=== PATIENT | female | born 1965 | race Caucasian/White ===

== ENCOUNTER 2017-02-11 21:19 | Observation (INO) ==
[2017-02-11] MEDS ORDERED: *HR* Metoprolol 5 MG/5 ML VIAL IVP ONE (22:52)
--- NOTE | 2017-02-11 22:55 | Emergency Department Note ---
Disposition Clinical Impression: Hypertensive urgency, Accelerated hypertension Disposition: Admitted As Inpatient Condition: Good Time of Disposition: 00:18 General Adult HPI - General Chief complaint: ED General Medical Stated complaint: High BP Time Seen by Provider: 02/11/17 22:26 Source: patient Mode of arrival: ambulatory Limitations: no limitations Nursing Notes Reviewed: Yes Vital Signs Reviewed: Yes - History of Present Illness HPI Narrative: 51-year-old female history of hypertension and pack per day smoker presents with elevated blood pressure. She continues to complain of blurry vision, chest discomfort and headache. She was recently evaluated for similar symptoms and diagnosed with hypertensive urgency on February [address] of the head showing small lacunar infarcts. Patient refused to be admitted for further workup as she had some social issues. She has been taken hydrochlorothiazide 10 mg at noon everyday sense. She presents with elevated blood pressure 167/111. Denies any chest pain at this time. Reports blurry vision but no visual changes. She continues to make good urine output. She attempted to establish primary care at the residency [facility] and has a scheduled appointment March 03. However due to the persistent symptoms she was recommended to come for further evaluation. On physical exam she denies any chest pain and neurologic exam is normal without any focal neural deficits. Will check for an organ damage and determine disposition. Pain Scale: 0 - Related Data Previous Rx's Medication Instructions Recorded hydroCHLOROthiazide 25 mg PO DAILY #30 tablet 02/06/17 [Hydrochlorothiazide] Allergies Allergy/AdvReac Type Severity Reaction Status Date / Time No Known Allergies Allergy Verified 02/06/17 20:00 All systems ED: reviewed and negative except as stated. Review of Systems: As Per HPI Constitutional: Denies: fever, chills Eyes: Reports: other (Blurry vision). Denies: vision change Cardiovascular: Denies: chest pain, palpitations, dyspnea on exertion Respiratory: Denies: cough, dyspnea Gastrointestinal: Denies: abdominal pain, nausea, vomiting, diarrhea Genitourinary: Denies: urgency, dysuria, hematuria Musculoskeletal: Denies: back pain, neck pain Integumentary: Denies: rash, abrasion Neurological: Reports: headache. Denies: weakness, numbness, abnormal gait, vertigo Psychiatric: Denies: anxiety, depression Past Medical History - Past Medical History Attestation: Yes The following information was validated with the patient. 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 - Social History Smoking Status: Current every day smoker Smokeless Tobacco Status: No Alcohol use: Reports: rarely Drug use: Reports: none Physical Exam - General Limitations: no limitations General appearance: alert, in no apparent distress - Head Head exam: atraumatic, normocephalic, normal inspection - Eye Eye exam: Present: normal appearance, PERRL, EOMI - Expanded Eye Exam Cornea: bilateral: Normal Inspection Anterior chamber: bilateral: normal inspection Posterior chamber: bilateral: normal inspection - ENT ENT exam: normal exam, normal oropharynx, mucous membranes moist - Neck Neck exam: Present: normal inspection, full ROM, trachea midline. Absent: tenderness - Chest Chest inspection: Present: normal inspection, symmetric chest wall rise. Absent : tenderness - Respiratory Respiratory exam: Present: normal lung sounds bilaterally. Absent: respiratory distress, wheezes - Cardiovascular Cardiovascular exam: Present: regular rate, normal rhythm, normal heart sounds - Abdominal Exam Abdominal exam: Present: soft, Non-Tender, normal bowel sounds. Absent: tenderness, distention, guarding, rebound, rigidity - Extremities Exam Extremities exam: Present: normal inspection, full ROM, normal capillary refill. Absent: tenderness, pedal edema, calf tenderness - Back Exam Back exam: Present: normal inspection, full ROM. Absent: tenderness - Neurological Exam Neurological exam: Present: alert, oriented X3, CN II-XII intact, normal gait - Expanded Neurological Exam Patient oriented to: Present: person, place, time Speech: Present: fluid speech Cranial nerves: EOM function (II, III, IV, ): Normal, facial sensation (V): Normal, facial palsy (VII): Normal, gag reflex (IX): Normal, spinal accessory function (XI): Normal, tongue deviation (XII): Normal Cerebellar function: finger to nose: Normal, heel to conway: Normal Cerebellar function: normal gait Motor strength - LUE: 5/5 Motor strength - RUE: 5/5 Motor strength - LLE: 5/5 Motor strength - RLE: 5/5 Upper motor neuron exam: fred neglect: Absent bilaterally, pronator drift: Absent bilaterally Sensory exam upper extremity: light touch: Normal Sensory exam lower extremity: light touch: Normal - Psychiatric Psychiatric exam: Present: normal affect, normal mood - Skin Skin exam: Present: warm, dry, intact, normal color Course - Reevaluation(s) Reevaluation #1: She continues to deny any chest pain but continues to complain of blurry vision. Fundoscopic exam did not show any exudates or papilledema. Labs did not show any signs of an organ damage. Neurologic exam remains normal without any focal neural deficits. After 5 mg Lopressor patient's blood pressure initially came down 144/96 and 160/110 but upon recheck has come back up persistently diastolic above 110s. Will give her dose of 20 mg labetalol and given her history of lacunar stroke will admit for hypertensive urgency and accelerated hypertension. She does report a history of hypertension several years ago at that time taken lisinopril but she had stopped. Due to the persistent symptoms of headache, blurry vision and mild chest discomfort she is appropriate for admission to medicine for further workup.Patient is in agreement with this plan. Time: 00:01 Reevaluation #2: BP came down 160/99 after Labetalol. Time: 01:16 - Consultations Consultation #1: Spoke with on-call hospitalist bismark Thrasher to admit for hypertensive urgency. No further orders at this time Time: 01:16 Vital Signs Temperature 98.1 F 02/11/17 21:51 Pulse Rate 90 02/11/17 21:51 Respiratory Rate 16 02/11/17 21:51 Blood Pressure 167/111 02/11/17 21:51 O2 Sat by Pulse Oximetry 95 02/11/17 21:51 Temperature 98.1 F 02/11/17 21:51 Pulse Rate 75 02/12/17 00:51 Respiratory Rate 18 02/12/17 00:51 Blood Pressure 160/99 02/12/17 00:51 O2 Sat by Pulse Oximetry 94 02/12/17 00:51 Oxygen Delivery Oxygen Delivery Room Air Medical Decision Making - Medical Records Medical records reviewed: Yes I reviewed the patient's medical records. - Lab Data Lab results reviewed: Yes I reviewed the patient's lab results. Result diagrams: 02/11/17 23:04 02/11/17 23:04 Lab Results 02/11/17 02/11/17 02/11/17 Range/Units 22:30 22:30 23:04 WBC 10.9 (4.3-11.1) K/mcL RBC 4.93 (3.82-4.97) M/mcL Hgb 15.2 (11.5-15.4) g/dL Hct 46.8 H (35.3-44.9) % MCV 94.9 (83.0-100.0) fL MCH 30.8 (28.0-33.3) pg MCHC 32.5 (31.6-35.5) g/dL RDW 13.2 (11.5-14.5) % Plt Count 255 (140-400) K/mcL MPV 10.2 (9.4-12.4) fL Immature Gran % 0.8 (0-4) % Seg Neutrophils % 65.7 % Lymphocytes % 25.2 % Monocytes % 6.1 % Eosinophils % 1.6 % Basophils % 0.6 % Neutrophils # 7.2 (1.6-8.9) K/mcL Lymphocytes # 2.8 (0.6-4.6) K/mcL Monocytes # 0.7 (0.0-1.3) K/mcL Eosinophils # 0.2 (0.0-0.6) K/mcL Basophils # 0.1 (0.0-0.2) K/mcL Sodium (136-145) mEq/L Potassium (3.5-4.5) mEq/L Chloride (98-109) mEq/L Carbon Dioxide (19-29) mEq/L BUN (7-20) mg/dL Creatinine (0.57-1.11) mg/dL Est GFR ( Amer) (> 60) Est GFR (Non-Af Amer) (> 60) BUN/Creatinine Ratio (6-26) Glucose (70-99) mg/dL Calculated Osmolality (280-300) Calcium (8.6-10.8) mg/dL Troponin I (0-0.03) ng/mL Urine Color Yellow (Yellow) Urine Clarity Clear (Clear) Urine pH 6.0 (5.0-8.0) pH Units Ur Specific [place] 1.011 (1.010-1.025) Urine Protein Negative (Neg-Trace) mg/dL Urine Glucose (UA) Normal (Normal) mg/dL Urine Ketones Negative (Negative) mg/dL Urine Blood Trace H (Negative) Urine Nitrite Negative (Negative) Urine Bilirubin Negative (Negative) Urine Urobilinogen Normal (Normal) mg/dL Ur Leukocyte Esterase Negative (Negative) Urine Microscopic RBC 3-5 H (0-3) per hpf Urine Microscopic WBC 0-3 (0-3) per hpf Ur Squamous Epith Cells Many H (None-Few) per lpf Urine Bacteria Few (None-Few) per hpf Hyaline Casts None Seen (None-Few) per lpf Ur Culture Indicated? NO (NO) Urine Test Negative (Negative) 02/11/17 02/11/17 Range/Units 23:04 23:04 WBC (4.3-11.1) K/mcL RBC (3.82-4.97) M/mcL Hgb (11.5-15.4) g/dL Hct (35.3-44.9) % MCV (83.0-100.0) fL MCH (28.0-33.3) pg MCHC (31.6-35.5) g/dL RDW (11.5-14.5) % Plt Count (140-400) K/mcL MPV (9.4-12.4) fL Immature Gran % (0-4) % Seg Neutrophils % % Lymphocytes % % Monocytes % % Eosinophils % % Basophils % % Neutrophils # (1.6-8.9) K/mcL Lymphocytes # (0.6-4.6) K/mcL Monocytes # (0.0-1.3) K/mcL Eosinophils # (0.0-0.6) K/mcL Basophils # (0.0-0.2) K/mcL Sodium 141 (136-145) mEq/L Potassium 3.8 (3.5-4.5) mEq/L Chloride 101 (98-109) mEq/L Carbon Dioxide 31 H (19-29) mEq/L BUN 10 (7-20) mg/dL Creatinine 0.89 (0.57-1.11) mg/dL Est GFR ( Amer) > 60 (> 60) Est GFR (Non-Af Amer) > 60 (> 60) BUN/Creatinine Ratio 11 (6-26) Glucose 92 (70-99) mg/dL Calculated Osmolality 291 (280-300) Calcium 10.3 (8.6-10.8) mg/dL Troponin I 0.00 (0-0.03) ng/mL Urine Color (Yellow) Urine Clarity (Clear) Urine pH (5.0-8.0) pH Units Ur Specific [place] (1.010-1.025) Urine Protein (Neg-Trace) mg/dL Urine Glucose (UA) (Normal) mg/dL Urine Ketones (Negative) mg/dL Urine Blood (Negative) Urine Nitrite (Negative) Urine Bilirubin (Negative) Urine Urobilinogen (Normal) mg/dL Ur Leukocyte Esterase (Negative) Urine Microscopic RBC (0-3) per hpf Urine Microscopic WBC (0-3) per hpf Ur Squamous Epith Cells (None-Few) per lpf Urine Bacteria (None-Few) per hpf Hyaline Casts (None-Few) per lpf Ur Culture Indicated? (NO) Urine Test (Negative) - Radiology Data Radiology results reviewed: Yes I reviewed the patient's radiology results. Chest X-Ray 02/11/17 22:52 IMPRESSION: Negative portable chest. D/ / Hayes Ovalles MD / Hayes Ovalles MD Interpreting Provider: Hayes Ovalles MD - EKG Data EKG #1 EKG attestation: Yes I reviewed and interpreted this EKG. EKG results narrative: EKG performed 2320 normal sinus rhythm 75 bpm normal axis no ST elevation or depression, intervals are within normal limits. Compared to old EKG performed 02/06/2017 shows consistent findings. No acute ischemic changes. Attestation Statement - Attestation Attestation: I, Jani High MD, personally evaluated this patient and discussed their management with the resident physician. I reviewed the resident's note and agree with the documented findings, medical decision making, and plan of care. 51-year-old female presents to the emergency department with a complaint of elevated blood pressure. She complains of having headache and blurred vision. Some intermittent chest discomfort with nausea but no vomiting. Some intermittent numbness and tingling in the extremities. Symptoms started a little over a week ago. She was seen here about 5 days ago and had a CT of the brain which showed some lacunar infarcts. She states they wanted to admit her at that time but she refused. She has a history of hypertension in the past but stopped taking her medication a long time ago. She returns tonight with continued symptoms. On examination the patient is a well-developed well-nourished well-appearing female in no acute distress. She is alert and oriented 3. There is no cyanosis or diaphoresis. No carotid bruits. No gross focal neurological deficits. Breath sounds are clear and equal bilaterally. Heart regular rate and rhythm. Abdomen is soft and nontender with normal bowel sounds. EKG normal. Chest x-ray negative. Labs reviewed. Patient received IV Lopressor with no change in blood pressure. She did receive labetalol 20 mg IV with some improvement. Hospitalist, Dr. Valdes, was consulted and accepted admission of the patient.
[2017-02-11 23:07] LABS: Bilirubin,Urine Negative (Negative); Blood,Urine Trace (Negative); Clarity,Urine Clear (Clear); Color,Urine Yellow (Yellow); Glucose,Urine (UA) Normal (Normal); Ketones,Urine Negative (Negative); Leukocyte Esterase,Urine Negative (Negative); Nitrite,Urine Negative (Negative); Protein,Urine Negative (Neg-Trace); Specific Gravity,Urine 1.011 (1.010-1.025); Urobilinogen,Urine Normal (Normal)
[2017-02-11 23:10] LABS: Bacteria,Urine Few per hpf (None-Few); Hyaline Casts,Urine None Seen per lpf (None-Few); Squamous Epithelial Cell,Urine Many per lpf (None-Few); WBC,Urine 0-3 per hpf (0-3)
[2017-02-11 23:14] LABS: Basophils # 0.1 K/mcL (0.0-0.2); Basophils % 0.6 %; Eosinophils # 0.2 K/mcL (0.0-0.6); Eosinophils % 1.6 %; Hematocrit 46.8 % (35.3-44.9); Hemoglobin 15.2 g/dL (11.5-15.4); Immature Granulocytes % 0.8 % (0-4); Lymphocytes # 2.8 K/mcL (0.6-4.6); Lymphocytes % 25.2 %; Mean Corpuscular HGB Conc 32.5 g/dL (31.6-35.5); Mean Corpuscular Hemoglobin 30.8 pg (28.0-33.3); Mean Corpuscular Volume 94.9 fL (83.0-100.0); Mean Platelet Volume 10.2 fL (9.4-12.4); Monocytes # 0.7 K/mcL (0.0-1.3); Monocytes % 6.1 %; Neutrophils # 7.2 K/mcL (1.6-8.9); Platelet Count 255 K/mcL (140-400); Red Blood Count 4.93 M/mcL (3.82-4.97); Red Cell Distribution Width 13.2 % (11.5-14.5); Segmented Neutrophils % 65.7 %
[2017-02-11 23:26] LABS: BUN/Creatinine Ratio 11 (6-26); Blood Urea Nitrogen 10 mg/dL (7-20); Calcium 10.3 mg/dL (8.6-10.8); Carbon Dioxide 31 mEq/L (19-29); Chloride 101 mEq/L (98-109); Glucose 92 mg/dL (70-99); Osmolality,Calculated 291 (280-300); Potassium 3.8 mEq/L (3.5-4.5); Sodium 141 mEq/L (136-145); eGFR For African Americans > 60 (> 60); eGFR For Non-African Americans > 60 (> 60)
[2017-02-12] MEDS ORDERED: *HR* Labetalol 20 MG/4 ML SYRINGE IVP ONE (00:15)
[2017-02-12] MEDS ORDERED: *HR* Morphine 2 MG/ML SYRINGE IVP PRN (01:36)
[2017-02-12] MEDS ORDERED: Ondansetron 4 MG/2 ML VIAL IVP PRN (01:36)
[2017-02-12] MEDS ORDERED: Naloxone 0.4 MG/ML INJ IVP PRN (01:36)
[2017-02-12] MEDS ORDERED: Acetaminophen 325 MG TABLET PO PRN (01:36)
--- NOTE | 2017-02-12 01:42 | Internal Med History&Physical ---
Date of Encounter: 02/12/17 Time of Encounter: 02:00 Assessment and Plan (1) Accelerated hypertension Current visit: Yes Status: Acute Accelerated hypertension - secondary to medication noncompliance - no evidence of end organ damage h/o Essential HTN - not well controlled IV Labetalol and IV Metoprolol given in the ED Continue Lisinopril/HCTZ, PO Metoprolol, IV Hydralazine when necessary Continue Aspirin, Statin Troponin - 0.00, will trend EKG - sinus rhythm with no acute ST-T changes Chest x-ray - no acute process CT brain () - probable prior lacunar infarct in the right anterior limb of internal capsule Echocardiogram - pending Cardiac telemetry, labs in a.m. (2) Depression Current visit: Yes Status: Chronic Chronic major depression - stable, continue Effexor History of opioid dependence - now on Suboxone Patient admits to remote history of cocaine use Qualifiers: Depression Type: major depressive disorder Major depression recurrence: recurrent Active/Remission status: currently active Major depression episode severity: mild Qualified Code(s): F33.0 - Major depressive disorder, recurrent, mild (3) Tobacco abuse Current visit: Yes Status: Acute Patient smokes about three fourths of a pack of cigarettes daily - smoked for almost 30 years Counseled about cessation, nicotine patch (4) DVT prophylaxis Current visit: Yes Status: Acute Continue heparin subcutaneous Internal Medicine - H&P: HPI Chief complaint: Headache, blurred vision Admitted From: Emergency Dept Plans for Post Hospital Care: Home History of present illness: Ms. Kline is a 51 year old female with past medical history of hypertension and depression. She presents to the ED with complaints of headaches and blurred vision. On examination patient is awake and alert. Not in any distress. Able to provide all history. No family members at bedside. Patient states she has had headaches and blurred vision for the past few weeks. Symptoms have gradually worsened over the past week. She initially came in to the ED about 5 days ago for similar complaints. She was found to have accelerated hypertension. She had a CT scan of her brain done which showed an old lacunar infarct. She was advised admission to the hospital at the time, but she left AGAINST MEDICAL ADVICE. Patient returns today with the same complaints of headache and blurred vision, and she says symptoms seem to be slightly worse earlier today. Patient states her headache is almost generalized and is throbbing at times. She states headache has improved after IV antihypertensive medication given in the ED. No aggravating factors. Patient denies chest pain denies shortness of breath at present. Denies dizziness or vomiting or abdominal pain or fever or diarrhea. No other associated symptoms. Patient states that she has not been taking her medication for several months and does not follow up with a primary care physician. Patient does smoke about three fourths of a pack of cigarettes daily and has smoked for almost 30 years. Patient states she has a history of opioid abuse in the past and is now on Suboxone. She also admits to remote history of cocaine use. Initial evaluation in the ED today is negative except for elevated blood pressure. Patient is being admitted for accelerated hypertension. She will be restarted on by mouth medication will be on IV hydralazine when necessary. Patient has been explained about her condition and plan of care. She understood and agreed. No unanswered questions. CODE STATUS full code. Past Med Surg Social Fam HX - Past Medical History Medical history: hypertension, other (History of opioid dependence now on Suboxone) Psychiatric history: depression - Past Surgical History Surgical History: orthopedic, other (Left shoulder surgery and right ankle fracture repair), other (Tubal ligation) - Social History Smoking Status: Current every day smoker Smokeless Tobacco Status: No Alcohol use: rarely Drug use: none - Family History Father Hx Family Cancer: Yes Mother Hx Family Medical Disorders: Yes (Hypertension) Internal Medicine - H&P: Meds hydroCHLOROthiazide [Hydrochlorothiazide] 25 mg PO DAILY #30 tablet 02/06/17 [Rx ] Allergies No Known Allergies Allergy (Verified 02/06/17 20:00) All Systems PM: A 10-system review of systems was performed and is negative for pertinent findings except as documented above in the HPI. - Constitutional Constitutional: no fatigue, no fever(s), no weakness - EENT Eyes: blurry vision, no diplopia, no loss of vision, no photophobia Ears: no ear pain - Cardiovascular Cardiovascular ROS IM: no chest pain, no dyspnea, no dyspnea on exertion, no edema, no lightheadedness, no orthopnea, no syncope - Respiratory Respiratory: no cough, no dyspnea, no dyspnea on exertion, no wheezing, no chest congestion - Gastrointestinal Gastrointestinal: no abdominal pain, no bloating, no cramping, no diarrhea, no hematochezia, no nausea, no vomiting - Genitourinary Genitourinary: no dysuria - Musculoskeletal Musculoskeletal ROS IM: arthralgias - Neurological Neurological ROS: headache(s), no abnormal gait, no abnormal speech, no confusion, no dizziness, no focal weakness, no numbness, no tingling - Psychiatric Psychiatric: depression - Constitutional Vitals: Temp Pulse Resp BP Pulse Ox 98.1 F 75 18 160/99 94 02/11/17 21:51 02/12/17 00:51 02/12/17 00:51 02/12/17 00:51 02/12/17 00:51 General appearance: Present: A&O X 3, pleasant, no acute distress, answers questions appropriately - Head Head exam: Present: atraumatic - Eye Eye exam: Present: EOMI. Absent: conjunctival injection, scleral icterus - ENT ENT exam: Present: mucous membranes moist - Neck Neck exam general surgery: Present: supple - Respiratory Respiratory exam: Present: CTAB. Absent: rales, rhonchi, wheezes, tachypnea - Cardiovascular Cardiovascular exam: Present: RRR, +S1, +S2 - GI/Abdominal GI/Abdominal exam: Present: soft, no peritoneal signs. Absent: distended, firm , guarding, rigid, tenderness - Extremities Exam Extremities exam: Present: radial pulses palpable and symetrical. Absent: cyanotic, pedal edema, tenderness - Neurological Exam Neurological exam: Present: alert, CN II-XII intact, oriented X3, no focal deficits. Absent: facial droop, speech deficit Internal Med - H&P Results - Labs CBC & Chem 7: 02/11/17 23:04 02/11/17 23:04
[2017-02-12] MEDS ORDERED: Lisinopril-HCTZ 20-12.5mg TABLET PO ONE (03:34)
[2017-02-12 05:11] LABS: Basophils # 0.1 K/mcL (0.0-0.2); Basophils % 0.8 %; Eosinophils # 0.2 K/mcL (0.0-0.6); Eosinophils % 1.7 %; Hematocrit 45.6 % (35.3-44.9); Hemoglobin 14.8 g/dL (11.5-15.4); Immature Granulocytes % 0.8 % (0-4); Lymphocytes # 3.4 K/mcL (0.6-4.6); Lymphocytes % 30.8 %; Mean Corpuscular HGB Conc 32.5 g/dL (31.6-35.5); Mean Corpuscular Hemoglobin 30.8 pg (28.0-33.3); Mean Corpuscular Volume 94.8 fL (83.0-100.0); Mean Platelet Volume 10.4 fL (9.4-12.4); Monocytes # 0.8 K/mcL (0.0-1.3); Monocytes % 7.3 %; Neutrophils # 6.5 K/mcL (1.6-8.9); Platelet Count 261 K/mcL (140-400); Red Blood Count 4.81 M/mcL (3.82-4.97); Red Cell Distribution Width 13.3 % (11.5-14.5); Segmented Neutrophils % 58.6 %
[2017-02-12 05:23] LABS: Hemoglobin A1C 5.2 %
[2017-02-12 05:28] LABS: BUN/Creatinine Ratio 11 (6-26); Blood Urea Nitrogen 9 mg/dL (7-20); Calcium 9.7 mg/dL (8.6-10.8); Carbon Dioxide 33 mEq/L (19-29); Chloride 101 mEq/L (98-109); Chol/HDL Ratio 4.1 (0-4.9); Cholesterol 204 mg/dL (< 200); Glucose 83 mg/dL (70-99); HDL Cholesterol 50 mg/dL (40-59); LDL Cholesterol,Calculated 125 mg/dL (0-99); Magnesium 1.9 mg/dL (1.6-2.6); Osmolality,Calculated 288 (280-300); Potassium 3.5 mEq/L (3.5-4.5); Sodium 140 mEq/L (136-145); Triglycerides 147 mg/dL (< 150); eGFR For African Americans > 60 (> 60); eGFR For Non-African Americans > 60 (> 60)
[2017-02-12 05:49] LABS: Thyroid Stimulating Hormone 5.621 mcIU/mL (0.350-4.840)
[2017-02-12 07:24] VITALS: BP 110/73
[2017-02-12] MEDS ORDERED: Famotidine 20 MG TABLET PO SCH (09:00)
[2017-02-12] MEDS ORDERED: Aspirin 81 MG TAB.CHEW PO SCH (09:00)
[2017-02-12] MEDS ORDERED: Nicotine 21 MG PATCH.TD24 TD SCH (09:00)
[2017-02-12] MEDS ORDERED: Lisinopril-HCTZ 20-12.5mg TABLET PO SCH (09:00)
--- NOTE | 2017-02-12 10:01 | Discharge Summary ---
<Bouchra Renee - Last Filed: 02/12/17 10:24> Date of Encounter: 02/12/17 Time of Encounter: 09:00 - Discharge Diagnosis (1) Hypertensive urgency Priority: Primary Status: Acute Comments: - With BP as high as 190/116. - Likely related to patient's non-compliance to her home antihypertensive medications. - Resolved as BP 110/73 - Continue Lopressor and lisinopril/HCTZ. (2) Depression Priority: Secondary Status: Chronic Qualifiers: Depression Type: major depressive disorder Major depression recurrence: recurrent Active/Remission status: currently active Major depression episode severity: mild Qualified Code(s): F33.0 - Major depressive disorder, recurrent, mild (3) Tobacco abuse Priority: Secondary Status: Chronic - Discharge Medications Prescriptions: Lisinopril-HCTZ 20-12.5 [Prinzide 20-12.5] 1 each PO DAILY #30 tab Metoprolol [Lopressor] 25 mg PO BID #60 tab Nicotine Patch [Nicoderm] 21 mg TD DAILY #30 patch Home Medications: Lisinopril-HCTZ 20-12.5 [Prinzide 20-12.5] 1 each PO DAILY #30 tab 02/12/17 [Rx] Metoprolol [Lopressor] 25 mg PO BID #60 tab 02/12/17 [Rx] Nicotine Patch [Nicoderm] 21 mg TD DAILY #30 patch 02/12/17 [Rx] Allergies/Adverse Reactions: Allergies No Known Allergies Allergy (Verified 02/06/17 20:00) Procedures/tests Complete & Pending: Procedures Performed prior 72 hours Category Date Time Status ECG 12 lead ECG [ECG] AM 0600 Y 02/12/17 06:00 Ordered EV echocardiogram Routine Y 02/12/17 03:48 Completed Date of admission: 02/12/17 01:22 Primary care physician: PCP NO Discharging clinician: Bouchra Renee Anticipated date of discharge: 02/12/17 - Patient Status Disposition: Home, Self-Care Condition: Good Functional capacity at discharge: independent ambulation Overall status at discharge: patient is progressing back to baseline - Discharge Instructions Instructions: Metoprolol (By mouth), Nicotine (Absorbed through the skin), Lisinopril/Hydrochlorothiazide (By mouth), Chronic Hypertension (DC) Follow Up With: NO,PCP [Primary Care Provider] - (within a week- The number for the residency clinic is [phone]) Additional Instructions: Please continue prescribed Lopressor (25 mg twice a day) and lisinopril-HCTZ (20 -12.5, 1 tablet daily). Please follow with your primary care provider within a week. Please continue the effort to cut down your smoking. A prescription of nicotine patch will also be provided. - Diet and Activity Activity: increase activity as tolerated Diet: low salt diet Hospital course: Ms. Kline is a 51 year old female with PMH of hypertension, tobacco use and depression. Patient presented to ED at 02/11/17 night with complaint of intermittent headaches and blurry vision for past few weeks. Patient was noted to have blood pressure as high as 190/116 the ED and IV Labetalol & IV Metoprolol were given. Patient was admitted on 02/12/17 for hypertensive urgency. Patient was started on Lopressor 25 mg twice a day and lisinopril-HCTZ 20-12.5, 1 tablet daily. Patient's elevated blood pressure is likely related to patient's non-compliance as she states that "she just started her blood pressure medication." This morning patient's headache and blurry vision resolved and blood pressure dropped to 110/73. Patient is hemodynamically stable and can be discharge home with prescribed Lopressor (25 mg twice a day) and lisinopril-HCTZ (20-12.5, 1 tablet daily). Patient is instructed to take those medications on time and follow with her primary care provider within a week. Smoking counseling was also given and patient is instructed to cut down your smoking. A prescription of nicotine patch will also be provided. Patient verbalized her understanding and agreed with the discharge plan. All questions answered. Time spent discussing smoking cessation with patient: 3 to 10 minutes - Time Spent with Patient Total time spent providing and/or coordinating discharge services: Greater than 30 minutes (42 minutes) - Constitutional Vitals: Temp Pulse Resp BP Pulse Ox 98.3 F 66 17 110/73 93 02/12/17 07:20 02/12/17 07:20 02/12/17 07:20 02/12/17 07:20 02/12/17 07:20 General appearance: Present: A&O X 3, pleasant, no acute distress, answers questions appropriately - Head Head exam: Present: atraumatic, normocephalic - Eye Eye exam: Present: EOMI, PERRL, conjuntiva pink, sclera anicteric - Neck Neck exam general surgery: Present: supple, trachea midline. Absent: lymphadenopathy - Respiratory Respiratory exam: Present: CTAB. Absent: accessory muscle use, rales, rhonchi, wheezes - Cardiovascular Cardiovascular exam: Present: RRR, +S1, +S2. Absent: diastolic murmur, gallop, rubs, systolic murmur - GI/Abdominal GI/Abdominal exam: Present: normal bowel sounds, soft, no peritoneal signs. Absent: distended, tenderness - Extremities Exam Extremities exam: Present: warm, radial pulses palpable and symetrical. Absent : calf tenderness, cyanotic, pedal edema - Neurological Exam Neurological exam: Present: CN II-XII intact, oriented X3, no focal deficits. Absent: pronater drift, facial droop, speech deficit - Skin Skin exam: Present: dry, intact, warm - VTE Documentation of Mechanical Device: Intermittent pneumatic compression device <Troy Garcia - Last Filed: 02/12/17 10:49> Date of Encounter: 02/12/17 Procedures/tests Complete & Pending: Procedures Performed prior 72 hours Category Date Time Status ECG 12 lead ECG [ECG] AM 0600 Y 02/12/17 06:00 Ordered EV echocardiogram Routine Y 02/12/17 03:48 Completed Date of admission: 02/12/17 01:22 Primary care physician: PCP NO Hospital course: Ms. Kline is a 51 year old female - Time Spent with Patient Total time spent providing and/or coordinating discharge services: - Constitutional Vitals: Temp Pulse Resp BP Pulse Ox 98.3 F 66 17 110/73 93 02/12/17 07:20 02/12/17 07:20 02/12/17 07:20 02/12/17 07:20 02/12/17 09:00 - Attending Attestation continue lisinopril HCZ and metoprolol quit smoking, smoking cessation counseling given for 5 min I examined this patient and my medical decision-making was reviewed with the Resident Physician. I agree with the documented findings, disposition and treatment plan as described except to the extent set forth below.
--- NOTE | 2017-02-13 13:58 | Electrocardiograph Report ---
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
--- NOTE | 2017-02-13 14:32 | Electrocardiograph Report ---
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
== END 2017-02-12 13:40 | disposition home or self-care (01) ==
LOC: EMEROO 21:19 → 2ANU 21:19
PROVIDERS: ADMIT Internal Medicine; ATTEND Internal Medicine